=== PATIENT | female | born 1960 | race Two or more races ===

== ENCOUNTER 2022-02-02 13:40 | Emergency (ER) | payer OTHER ==
[~2022-02-02] VITALS: Ht 157.5 cm; Wt 127.0 kg
[2022-02-02] MEDS ORDERED: METFORMIN HCL1000 M2 PO (13:58)
[2022-02-02] MEDS ORDERED: GLIMEPIRIDE4 MG (13:58)
[2022-02-02] MEDS ORDERED: TOPROL XL25 M1 PO (13:59)
[2022-02-02] MEDS ORDERED: CRESTOR5 MG PO (13:59)
[2022-02-02] MEDS ORDERED: ALTACE1.25 MG PO (13:59)
== END 2022-02-02 15:42 | disposition home or self-care (01) ==
LOC: ER 13:40
DX: M79.604 Pain in right leg (principal); Z88.0 Allergy status to penicillin; Z91.013 Allergy to seafood